=== PATIENT | male | born 1985 | race Caucasian/White ===

== ENCOUNTER 2016-12-02 14:42 | Emergency (ER) | payer OTHER ==
[2016-12-02] MEDS ORDERED: Vistaril 50 MG/ML IM ONE ×2 (15:04→15:31)
[2016-12-02] MEDS ORDERED: TORAdol 30 mg Injection IM ONE (15:04)
[2016-12-02] MEDS ORDERED: TORAdol 30 mg Injection ONE ×2 (15:31→15:32)
--- NOTE | 2016-12-02 15:42 | XRAY ---
Indication: Left knee pain. No known injury. Comparison: None AP/crosstable lateral left knee intact. No bony, articular, or soft tissue abnormalities.
--- NOTE | 2016-12-02 15:48 | ERPHSYRPT ---
- History of Present Illness Time Seen by Provider: 12/02/16 15:31 Source: patient Patient Subjective Stated Complaint: pt co left knee pain for last 2 days, no injury to left knee, is able to walk on knee, has had no pain meds for knee Triage Nursing Assessment: pt alert , resp easy, able to walk in, no redness for swelling noted Physician History: CC: left knee pain Hx: 31 y/o patient with left knee pain for a couple of days. Hurt worse at work today so came to ER. No known injury. No hx of arthritis syndrome. No redness, fever, or swelling. Severity of Pain-Max: moderate Severity of Pain-Current: moderate Lower Extremities Pain: knee: left Allergies/Adverse Reactions: No Known Drug Allergies Allergy (Unverified 12/02/16 15:05) Hx Tetanus, Diphtheria Vaccination/Date Given: Yes Hx Influenza Vaccination/Date Given: No Hx Pneumococcal Vaccination/Date Given: No Immunizations Up to Date: Yes - Review of Systems Constitutional: No Fever, No Chills Musculoskeletal: Joint Pain (left knee), No Back Pain, No Neck Pain Neurological: No Paralysis, No Parasthesia - Past Medical History Pertinent Past Medical History: No - Past Surgical History Past Surgical History: No - Social History Smoking Status: Former smoker Exposure to second hand smoke: No Drug Use: none Patient Lives Alone: No - Nursing Vital Signs Nursing Vital Signs: Initial Vital Signs Temperature 97.9 F Temperature Source Oral Pulse Rate 109 Respiratory Rate 16 Blood Pressure [Right Arm] 157/97 Pain Intensity 9 - Physical Exam General Appearance: alert Eyes, Ears, Nose, Throat Exam: normal ENT inspection, moist mucous membranes Neck Exam: normal inspection, supple Cardiovascular/Respiratory Exam: chest non-tender, normal breath sounds, regular rate/rhythm Gastrointestinal/Abdominal Exam: non-tender, soft Hips Exam: bilateral: non-tender Legs Exam: bilateral leg: non-tender Knees Exam: left knee: soft tissue tenderness Ankle Exam: bilateral ankle: non-tender Foot Exam: bilateral foot: non-tender Neuro/Tendon Exam: normal sensation, normal motor functions Mental Status Exam: alert, oriented x 3, cooperative Skin Exam: warm, dry, No rash SpO2 Interpretation: normal SpO2: 98 Oxygen Delivery: Room Air - Course Nursing assessment & vital signs reviewed: Yes - Radiology Exams left knee X-ray Interpretation: Reviewed by me, Negative Ordered Tests: Active Orders 24 hr Category Date Time Status Braden Bandage Application [facility] Care 12/02/16 15:04 Active Cold Application STAT Care 12/02/16 15:04 Active KNEE (1 OR 2 VIEW) Stat Exams 12/02/16 15:04 Completed Medication Summary Discontinued Medications Generic Name Dose Route Start Last Admin Trade Name Javon PRN Reason Stop Dose Admin Hydroxyzine HCl 50 mg 12/02/16 15:04 Vistaril 50 Mg/Ml IM 12/02/16 15:05 STAT ONE Hydroxyzine HCl Confirm 12/02/16 15:31 Vistaril 50 Mg/Ml Administered 12/02/16 15:32 Dose 50 mg IM .STK-MED ONE Ketorolac Tromethamine 60 mg 12/02/16 15:04 Toradol 30 Mg Injection IM 12/02/16 15:05 STAT ONE Ketorolac Tromethamine Confirm 12/02/16 15:31 Toradol 30 Mg Injection Administered 12/02/16 15:32 Dose 60 mg .ROUTE .STK-MED ONE Ketorolac Tromethamine Confirm 12/02/16 15:32 Toradol 30 Mg Injection Administered 12/02/16 15:33 Dose 30 mg .ROUTE .STK-MED ONE - Progress Progress Note: 12/02/16 15:48 No sign of arthritis syndrome. Possible sprain. Advised motrin, braden wrap, and follow up. Counseled pt/family regarding: diagnosis, need for follow-up, rad results - Departure Time of Disposition: 15:49 Departure Disposition: Home Clinical Impression: Left knee sprain Qualifiers: Encounter type: initial encounter Involved ligament of knee: unspecified ligament Qualified Code(s): S83.92XA - Sprain of unspecified site of left knee, initial encounter Condition: Stable Critical Care Time: No Referrals: DOCTOR,NO FAMILY [NON-STAFF PHY W/O PRIVILEGES] - Instructions: Knee Sprain Additional Instructions: SPRAINS/STRAINS/CONTUSIONS 1. Rest the affected area as much as possible for the next few days. 2. Apply ice to the affected area for 20-30 minutes at a time, several times a day. 3. If you receive an elastic wrap, wear it only while awake for comfort and support. Re-wrap the elastic wrap if it feels too tight or too loose. 4. If swelling is present, elevate the affected part above the level of the heart for at least 2 to 3 days. 5. Use splints, slings, or crutches as instructed. 6. Watch for severe swelling, coldness, numbness, and discoloration of the fingers and toes. See your family physician or return to the emergency department if any of these are noted. Rx motrin. No driving tonite. Follow up with family doctor. Off work today. Prescriptions: Ibuprofen 600 mg PO Q6H PRN PRN #20 tablet PRN Reason: Pain
[2016-12-02 16:07] VITALS: BP 107/74; PULSE 86; O2SAT 96
== END 2016-12-02 16:13 | disposition home or self-care (01) ==
LOC: ED 14:42
DX: S83.92XA Sprain of unspecified site of left knee, initial encounter (principal)
CPT/HCPCS: 73560; 96372; 99283; 99284; J1885; J3410

== ENCOUNTER 2019-12-06 22:13 | Emergency (ER) | payer OTHER ==
--- NOTE | 2019-12-06 22:57 | ERPHSYRPT ---
- History of Present Illness Patient Subjective Stated Complaint: Patient states " i have had these 2 raised areas on my head for several years, but the one on the back of my head is draining yellow drainage which is new". Triage Nursing Assessment: Patient noted to have 2 golfball raised areas to scalp. 1 is on top farther back on scalp and the other is on the back of the head. One on top of scalp soft. No drainage or redness noted. One on back of head noted with pin-point yellowish center. Surrounding skin WNL. Patient states it has been draining yellow drainage. Patient denies pain or discomfort to areas. Patient alert and orientated times 4. Patient able to answer questions appropriatley. Allergies/Adverse Reactions: No Known Drug Allergies Allergy (Unverified 12/06/19 23:00) Hx Tetanus, Diphtheria Vaccination/Date Given: No Hx Influenza Vaccination/Date Given: No Hx Pneumococcal Vaccination/Date Given: No Immunizations Up to Date: Yes - Past Medical History Pertinent Past Medical History: No Neurological History: No Pertinent History ENT History: No Pertinent History Cardiac History: No Pertinent History Respiratory History: No Pertinent History Endocrine Medical History: No Pertinent History Musculoskeletal History: No Pertinent History GI Medical History: No Pertinent History History: No Pertinent History Psycho-Social History: No Pertinent History Male Reproductive Disorders: No Pertinent History - Past Surgical History Past Surgical History: No - Social History Smoking Status: Never smoker Exposure to second hand smoke: Yes Drug Use: none Patient Lives Alone: No - Nursing Vital Signs Nursing Vital Signs: Initial Vital Signs Temperature 97.8 F 12/06/19 22:21 Pulse Rate 93 H 12/06/19 22:21 Respiratory Rate 16 12/06/19 22:21 Blood Pressure 158/90 12/06/19 22:21 O2 Sat by Pulse Oximetry 97 12/06/19 22:21 Pain Scale Pain Intensity 0 - Physical Exam SpO2: 97 - Departure Departure Disposition: Home Clinical Impression: Trichilemmal cyst, Infected cyst of skin Condition: Good Critical Care Time: No Referrals: YVONNE BENITO [Primary Care Provider] - Additional Instructions: Please follow-up with your manager regulatory, plastic surgeon or with at the [facility] in [address], [place] [address] Discharge/Care Plan MENG JR,KILLIAN SCHUSTER was seen on 12/06/19 in the Emergency Room. The patient was counseled regarding Diagnosis,Lab results, Imaging studies, need for follow up and when to return to the Emergency Room. Prescriptions given: Discharge Note I have spoken with the patient and/or caregivers. I have explained the patient' s condition, diagnosis and treatment plan based on the information available to me at this time. I have answered the patient's and/or caregiver's questions and addressed any concerns. The patient and/or caregivers have as good understanding of the patient's diagnosis, condition and treatment plan as can be expected at this point. The vital signs have been stable. The patient's condition is stable and appropriate for discharge from the emergency department. The patient will pursue further outpatient evaluation with the primary care physician or other designated or consulting physician as outlined in the discharge instructions. The patient and/or caregivers are agreeable to this plan of care and follow-up instructions have been explained in detail. The patient and/or caregivers have received these instruction. The patient/and or caregivers are aware that any significant change in condition or worsening of symptoms should prompt an immediate return to this or the closest emergency department or call 911. Prescriptions: Cephalexin Mh 500 mg [Keflex 500 mg] 500 mg PO TID #21 capsule
[2019-12-06 23:26] VITALS: BP 141/86; PULSE 86; O2SAT 96
== END 2019-12-06 23:26 | disposition home or self-care (01) ==
LOC: ED 22:13
DX: L72.12 Trichodermal cyst (principal); L72.9 Follicular cyst of the skin and subcutaneous tissue, unspecified
CPT/HCPCS: 99283

== ENCOUNTER 2021-03-16 11:22 | Day surgery (SDC) | payer OTHER ==
--- NOTE | 2021-03-16 08:56 | HP ---
DATE OF SURGERY: 03/16/2021 HISTORY OF PRESENT ILLNESS: The patient is a 35 year-old had been going on for a while enlarging scalp cyst on his head and desires excision. PAST MEDICAL HISTORY: He denies any chronic illnesses. PAST SURGICAL HISTORY: None. MEDICATIONS: None. ALLERGIES: NKDA. FAMILY HISTORY: Negative in regards to this problem. SOCIAL HISTORY: No smoking. REVIEW OF SYSTEMS: Fourteen systems reviewed. Negative or noncontributory as above and per preadmission questionnaire. PHYSICAL EXAMINATION: GENERAL: No acute distress. HEENT: Sclerae nonicteric. Enlarging scalp cyst. NECK: No JVD. CHEST: Equal excursion, nonlabored breathing. CVS: Regular rate and rhythm. ABDOMEN: Soft. No peritoneal signs. EXTREMITIES: No significant edema. NEURO: Alert, oriented, moving extremities symmetrically. PSYCH: Appropriate mood and affect. IMPRESSION: Ruptured scalp cyst site. I feel he would benefit from excision. Risks and benefits explained in detail including but not limited to bleeding or infection, risk of wound dehiscence possibly enough infection possibly requiring packing at the time of the procedure, general risk of bleeding or infection, risk of aches, pains, burning or numbness possibly watermelon inspector or chronic in nature. He understands what we excise once he heals the wound will not recur but he could get similar cyst or nodule adjacent to or elsewhere on his scalp or body. General risk of anesthesia, deep vein thrombosis, pulmonary embolism or pneumonia. He understands and agrees to the planned procedure, will proceed with excisional biopsy of ruptured scalp cyst site possible packing as an outpatient.
[~2021-03-16 11:22] MED LIST: Lactated Ringers 1,000 ML IV SCH; Sensorcaine 0.25% 10 ML ONE
[2021-03-16] MEDS ORDERED: Lactated Ringers 1,000 ML IV SCH (12:00)
[2021-03-16] MEDS ORDERED: Zemuron 100 MG/10 ML ONE (13:02)
[2021-03-16] MEDS ORDERED: Decadron 4 MG INJ ONE (13:02)
[2021-03-16] MEDS ORDERED: Zofran 4 MG/2 ML VIAL ONE (13:02)
[2021-03-16] MEDS ORDERED: Xylocaine-Mpf 2% 5 Ml Vial ONE (13:02)
[2021-03-16] MEDS ORDERED: DIPRIVAN 200 MG/20 ML IV ONE (13:02)
[2021-03-16] MEDS ORDERED: SUBLIMAZE 100 MCG/2 ML ONE ×2 (13:02→13:46)
[2021-03-16] MEDS ORDERED: BRIDION 200MG/2ML IV ONE (13:02)
[2021-03-16] MEDS ORDERED: CLINDAMYCIN-D5W 900 MG/50 ML*** 900 MG/50 ML BAG IV ONE (14:04)
[2021-03-16] MEDS ORDERED: Lactated Ringers 1,000 ML IV ONE (14:11)
[2021-03-16 16:03] VITALS: PULSE 91; O2SAT 94
[2021-03-16 16:15] VITALS: BP 149/85
--- NOTE | 2021-03-17 09:36 | OP ---
SURGERY DATE/TIME: 03/16/2021 2552 PREOPERATIVE DIAGNOSIS: History of ruptured cyst site scalp, multiple cysts in the past now currently a very large one anterior top of the head and small one posterior desires excisional biopsy. POSTOPERATIVE DIAGNOSIS: History of ruptured cyst site scalp, multiple cysts in the past now currently a very large one anterior top of the head and small one posterior desires excisional biopsy. PROCEDURES: 1) Excisional biopsy of ruptured cyst scalp anterior (approximately 4 cm). 2) Posterior ruptured cyst (approximately 2 cm with surrounding reaction around this cyst). SURGEON: Dr. Hao Winters. ANESTHESIA: General. ESTIMATED BLOOD LOSS: Less 15 cc. INDICATIONS: As noted above. Risks and benefits explained in detail and not limited to and consent obtained. He had been marked in the preoperative holding area. DESCRIPTION OF PROCEDURE AND FINDINGS: The patient is taken to the operating room. Again, the two areas had been marked in the preoperative holding area and confirmed with the patient. A very large one on the top and the other one little more posterior a little bit towards the right. These are marked with the patient in the preoperative holding area and confirmed. He was taken to the operating room. General anesthesia introduced. Placed in lateral position. Appropriate padding and positioning by anesthesia and OR staff. The scalp is then prepped and draped in usual sterile fashion. After official time out and no disagreement with planned procedure, starting with the most posterior one dissection carried through a small sliver of skin over the top of it. Dissection carried down and circumferentially around this ruptured cyst site as well as surrounding phlegmon that measured about 2 cm and passed off for pathology. Hemostasis controlled with pin point cautery. Good hemostasis noted. The wound was then closed later after irrigating it out. It was then closed. It was there is no visible cyst wall remaining in the wound. It was felt worthwhile to close and was closed with interrupted 3-0 Prolene at the end of the procedure. Attention was then turned to the larger cyst that actually squirted out fluid with anesthesia was positioning the patient. This was about a 4 cm area. A small sliver of skin dissection carried down and circumferentially around this ruptured cyst site dissecting off the underlying fascia. Multiple pulsatile perforators around it were controlled with some clamps initially and then with closure at the end of the procedure. It took some time to free this ruptured cyst, very large cyst 4 cm in size this was mobilized and eventually passed off. There was no visible cyst wall material remaining in the wound. Good hemostasis noted. The clamps controlled the perforators temporarily. Small extra segment of skin was redundant was excised. The wound was then closed in layers with interrupted 4-0 and 3-0 Vicryl closing the deep dermis subcu. Skin closed with interrupted 3-0 Prolene interrupted fashion. Good hemostasis noted. Antibiotic ointment, 0.25% Marcaine local injected along the wounds. The patient tolerated the procedure well. I will see if he has family to discuss the findings with. Script for Bactrim DS 1 p.o. b.i.d. for a week. [place] for the next day or so and he can transition to Extra-Strength Tylenol or ibuprofen after that.
== END 2021-03-16 16:15 | disposition home or self-care (01) ==
LOC: SDC 11:22
PROVIDERS: ATTEND Surgery
DX: L72.11 Pilar cyst (principal); L72.9 Follicular cyst of the skin and subcutaneous tissue, unspecified
CPT/HCPCS: 88304; J1100; J2405; J2704; J3010